=== PATIENT | male | born 1965 | race Caucasian/White ===

== ENCOUNTER 2021-01-14 09:20 | Outpatient (REF) | payer OTHER, SELFPAY ==
[2021-01-14 11:01] LABS: Cholesterol 211 mg/dL; Glucose Fasting 105 mg/dL (60-99); HDL Cholesterol 78 mg/dL; LDL Cholesterol Calculated 117 mg/dl; Triglycerides 82 mg/dL
[2021-01-19 17:16] LABS: Factor V Leiden POSITIVE
== END 2021-01-14 09:21 | disposition home or self-care (01) ==
LOC: HO.LAB 09:20
PROVIDERS: PCP Family Medicine; Visit Provider Family Medicine
DX: Z00.00 Encounter for general adult medical examination without abnormal findings (principal); Z83.2 Family history of diseases of the blood and blood-forming organs and certain disorders involving the immune mechanism
CPT/HCPCS: 36415; 80061; 81241; 82947

== ENCOUNTER → 2021-02-01 14:21 | Outpatient (BNVA) | payer OTHER, SELFPAY | PROVIDERS: PCP Family Medicine | DX: Z13.89 Encounter for screening for other disorder (principal) | CPT/HCPCS: 36415; 84450; 84460; 86803; 87389; 99203 ==

== ENCOUNTER 2021-09-01 21:47 | Outpatient (REF) | payer OTHER, SELFPAY ==
[2021-09-01 22:15] LABS: COVID-19 Test Negative (Negative)
== END 2021-09-01 21:48 | disposition home or self-care (01) ==
LOC: HO.LAB 21:47
PROVIDERS: PCP Family Medicine; Visit Provider Internal Medicine
DX: Z20.822 Contact with and (suspected) exposure to COVID-19 (principal)
CPT/HCPCS: 36415; 87635

== ENCOUNTER → 2021-09-09 12:00 | Outpatient (BNVA) | payer OTHER, SELFPAY | PROVIDERS: PCP Family Medicine | DX: Z13.89 Encounter for screening for other disorder (principal) | CPT/HCPCS: 36415; 84450; 84460; 86803; 87389; 99211 ==

== ENCOUNTER 2022-07-14 08:00 | Outpatient (RCR) | payer OTHER, SELFPAY | END 2022-07-26 08:56 | disposition home or self-care (01) | LOC: HO.PT 08:00 | PROVIDERS: PCP Family Medicine; Visit Provider Physician Assistant | DX: R20.2 Paresthesia of skin (principal) | CPT/HCPCS: 97110; 97140; 97161 ==

== ENCOUNTER 2023-10-24 07:34 | Outpatient (REF) | payer OTHER, SELFPAY ==
[2023-10-24 08:31] LABS: Cholesterol 204 mg/dL (<200); Glucose Fasting 100 mg/dL (60-99); HDL Cholesterol 92 mg/dL (>40); LDL Cholesterol Calculated 101 mg/dL (<100); Triglycerides 55 mg/dL (<150)
== END 2023-10-24 07:35 | disposition home or self-care (01) ==
LOC: HO.LAB 07:34
PROVIDERS: Visit Provider Family Medicine
DX: Z00.00 Encounter for general adult medical examination without abnormal findings (principal)
CPT/HCPCS: 36415; 80061; 82947